=== PATIENT | female | born 1970 | race Caucasian/White ===

== ENCOUNTER 2019-02-06 12:47 | Emergency (ER) | payer OTHER ==
[~2019-02-06] VITALS: Ht 167.6 cm; Wt 61.2 kg
--- NOTE | 2019-02-06 12:51 | NUR ---
PATIENT TO BED 11 BY EMS AT THIS TIME.
[2019-02-06 13:01] VITALS: BP 170/94
--- NOTE | 2019-02-06 13:01 | NUR ---
49 Y/O F BIBA WITH C/C OF ALCOHOL WITHDRAWAL PER EMS. PER EMS PT HAD "HALF GALLON OF VODKA BEFORE BEING PICKED UP". HX HTN, DM, ANXIETY, ETOH. RX PT DOES NOT RECALL RX. PER PT VOMITING/NAUSEA. DENIES DIARRHEA. SIDE RAILS UP. Addendum: 02/06/19 at 1308 by [facility] BS ON FIELD 312 ; PT NONCOMPLIANT WITH RX PER EMS
[2019-02-06] MEDS ORDERED: LORazepam 2 MG/ML VIAL IVP ONE ×2 (13:10→16:30)
[2019-02-06] MEDS ORDERED: ONDANSETRON 4 MG/2 ML VIAL IVP ONE (13:10)
[2019-02-06] MEDS ORDERED: NACL 0.9% 1,000 ML IV ONE ×2 (13:10→14:20)
[2019-02-06 13:53] LABS: BASOPHILS % (AUTO) 0.7 % (0.0-2.0); EOSINOPHILS % (AUTO) 0.3 % (0.0-4.0); HEMATOCRIT 39.6 % (36-48); HEMOGLOBIN 13.3 g/dL (12.0-16.0); LYMPHOCYTES # (AUTO) 1.2 K/uL (2.5-16.5); MEAN CORPUSCULAR HEMOGLOBIN 30 pg (27-31); MEAN CORPUSCULAR HGB CONC 34 g/dL (33-37); MEAN CORPUSCULAR VOLUME 88.4 fL (80-94); MONOCYTES # (AUTO) 0.3 K/uL (0.8-1.0); MONOCYTES % (AUTO) 5.3 % (1.7-9.3); NEUTROPHILS # (AUTO) 4.8 K/uL (1.8-7.7); NEUTROPHILS % (AUTO) 74.7 % (42.2-75.2); PLATELET COUNT (AUTO) 270 K/uL (140-450); RED BLOOD CELL COUNT(AUTO) 4.48 MIL/uL (4.20-5.40); RED CELL DISTRIBUTION WIDTH 14.8 % (11.6-13.7); WHITE BLOOD COUNT (AUTO) 6.5 K/uL (4.8-10.8)
[2019-02-06 14:04] LABS: ALBUMIN 3.5 g/dL (3.4-5.0); ANION GAP 22.4 (8-16); CARBON DIOXIDE 18.4 mmol/L (21-32); CREATININE 0.5 mg/dL (0.6-1.3); TOTAL BILIRUBIN 0.9 mg/dL (0.0-1.0)
[2019-02-06 14:13] LABS: POTASSIUM 2.8 mmol/L (3.5-5.1)
[2019-02-06] MEDS ORDERED: POTASSIUM CHLORIDE 10 MEQ TABER PO ONE (14:20)
[2019-02-06] MEDS ORDERED: FOLIC ACID 1 MG TAB PO ONE (15:25)
[2019-02-06] MEDS ORDERED: THIAMINE 200 MG/2 ML VIAL IM ONE (15:25)
[2019-02-06 16:11] LABS: BILIRUBIN,URINE NEGATIVE (NEGATIVE); BLOOD, URINE TRACE-I (NEGATIVE); COLOR,URINE YELLOW (YELLOW); LEUKOCYTE ESTERASE ,URINE 2+ (NEGATIVE); NITRITE, URINE NEGATIVE (NEGATIVE); UGLUCOSE 3+ (NEGATIVE)
[2019-02-06 16:14] LABS: APPEARANCE,URINE CLOUDY (CLEAR)
[2019-02-06] MEDS ORDERED: METOCLOPRAMIDE 10 MG/2 ML INJ VIAL IVP ONE (16:20)
[2019-02-06 16:27] LABS: BARBITURATE, URINE NEG. ng/ml (NEG <=200); BENZODIAZEPINE, URINE NEG. ng/mL (NEG <=200); CANNABINOID, URINE NEG. ng/mL (NEG <=50); COCAINE, URINE NEG. ng/mL (NEG <=300); OPIATE, URINE NEG. ng/mL (NEG <=2000); PHENCYCLIDINE SCREEN,URINE NEG. ng/mL (NEG <=25)
[2019-02-06 16:31] LABS: RBC,URINE 0-5 /HPF (0-5); WBC,URINE TOO MANY TO COUNT /HPF (0-5)
[2019-02-06] MEDS ORDERED: cefTRIAXone 1,000 MG VIAL ONE (16:53)
[2019-02-06 17:45] VITALS: BP 158/90
--- NOTE | 2019-02-09 11:13 | NUR ---
LATE ENTRY -- INFORMED DR NEWBERRY OF POSITIVE URINE CULTURE. NO NEW ORDERS OR RX RECEIVED AT THIS TIME.
== END 2019-02-06 17:45 | disposition home or self-care (01) ==
LOC: MED 12:47
DX: F10.129 Alcohol abuse with intoxication, unspecified (principal); E87.6 Hypokalemia; E11.65 Type 2 diabetes mellitus with hyperglycemia; I10 Essential (primary) hypertension; R74.0 Nonspecific elevation of levels of transaminase and lactic acid dehydrogenase [LDH]; F41.9 Anxiety disorder, unspecified; Y90.0 Blood alcohol level of less than 20 mg/100 ml; Z60.2 Problems related to living alone
CPT/HCPCS: 36415; 80053; 80305; 81001; 83690; 85025; 87086; 87186; 93005; 96361; 96365; 96372; 96375; 96376; 99284; G0482; J0696; J2060; J2405; J3411; J7030; J7060